=== PATIENT | female | born 1955 | race Caucasian/White ===

== ENCOUNTER 2020-07-26 11:24 | Outpatient (CLI) | payer MEDICARE, OTHER, SELFPAY ==
--- NOTE | ~2020-07-26 | US_ITS ---
EXAMINATION: US venous doppler LE RT DATE: 07/26/2020 12:05 INDICATION: Right lower limb edema. TECHNIQUE: Grayscale ultrasound images without and with compression and Doppler ultrasound images of the right lower extremity veins were obtained. COMPARISON: Ultrasound 05/17/2009 FINDINGS: The visualized portions of right common femoral vein, profunda (deep) femoral vein, femoral vein, pop liteal vein, peroneal veins, and posterior tibial veins. IMPRESSION: 1. No deep venous thrombosis. Reviewed, dictated and finalized at location B.
== END 2020-07-26 11:25 | disposition home or self-care (01) ==
LOC: ANHIMG 11:27
PROVIDERS: PCP Internal Medicine; Visit Provider Internal Medicine
DX: M79.89 Other specified soft tissue disorders (principal)
CPT/HCPCS: 93971

== ENCOUNTER 2020-08-04 18:02 | Emergency (ER) | payer MEDICARE, OTHER, SELFPAY ==
--- NOTE | ~2020-08-04 | XR_ITS ---
EXAMINATION: XR femur RT min 2V, XR tibia fibula RT 2V, XR foot RT min 3V DATE: 08/04/2020 20:07 INDICATION: Worsening right hip, leg and foot pain. TECHNIQUE: 1. Overlapping proximal and distal, AP and lateral views of the right femur were obtained. 2. AP and lateral views of the right tibia and fibula were obtained. 3. Dorsal plantar, lateral and 2 oblique views of the right foot were obtained. COMPARISON: None FINDINGS: Alignment of the right lower limb from the hip through the foot is normal. No fracture. Joint spaces are normal. No cortical erosions or periosteal reaction. No right knee knee joint effusion. Small Ach illes and plantar calcaneal spurs. Soft tissues are unremarkable. IMPRESSION: Small Achilles and plantar calcaneal spurs. Otherwise unremarkable radiographs of the rig ht femur, lower leg and foot.. Reviewed, dictated and finalized at location A. IMPRESSION: Small Achilles and plantar calcaneal spurs. Otherwise unremarkable radiographs of the right femur, lower leg and foot.. IMPRESSION: Small Achilles and plantar calcaneal spurs. Otherwise unremarkable radiographs of the right femur, lower leg and foot..
[2020-08-04 18:06] VITALS: BP 127/90; PULSE 98; RESP 20; TEMP 36.3; O2SAT 98
[2020-08-04] MEDS: HYDROcodone/acetaminophen (*CRX) 5-325 MG TABLET 2 TAB PO (20:11)
--- NOTE | 2020-08-04 20:13 | ED.GENADULT ---
HPI - General Adult General Chief complaint: Extremity Injury, Lower Stated complaint: pain to right extremity Time Seen by Provider: 08/04/20 18:41 Source: patient and family Mode of arrival: ambulatory Limitations: no limitations History of Present Illness HPI narrative: Patient presents for evaluation of pain in the right lower extremity. She is an extremely poor historian as is her who is here at the bedside. Sounds like she has some chronic bilateral hip pain for which she takes hydrocodone. However in the last two weeks she has experienced pain in right lower extremity extending from foot to right hip. She states pain is constant but worse with weight bearing. She cannot identify precipitating injury or event. She states that current pain is 10/10 in severity, without descriptive quality. She contacted her PCP and had a venous duplex performed which was negative for DVT. It sounds like she had an MRI of lumbar spine at an outside imaging facility in [place] and results are pending. She states that it hurts to move her right ankle. It sounds like she is being treated for onychomycosis. She states she has been applying antibiotic ointment to an infected toenail . No fever, chills, nausea, vomiting. She states that it feels like her right foot is frozen . When asked for clarification she states that her right foot feels numb. No history of smoking. Related Data Home Medications Medication Instructions Recorded Confirmed baclofen mg 08/04/20 08/04/20 conjugated estrogens [Premarin] 08/04/20 esomeprazole magnesium [Nexium] mg 08/04/20 lisinopril-hydrochlorothiazide tablet 08/04/20 pravastatin 08/04/20 Allergies Allergy/AdvReac Type Severity Reaction Status Date / Time No Known Allergies Allergy Verified 08/04/20 18:38 Review of Systems Review of Systems: Narrative: CONSTITUTIONAL: Denies fever, chills, or sweats. EYES: Denies visual changes, redness, or discharge. ENT: Denies rhinorrhea, congestion, sore throat, or otalgia. CARDIOVASCULAR: Denies chest pain, palpitations, or edema. RESPIRATORY: Denies cough or dyspnea. GASTROINTESTINAL: Denies abdominal pain, nausea, vomiting, or diarrhea. GENITOURINARY: Denies dysuria or hematuria. SKIN: Denies rash or itching. MUSCULOSKELETAL: Reports right lower extremity pain NEUROLOGIC:Reports numbness in right foot. Denies headache, dizziness, or weakness. PSYCHIATRIC: Denies anxiety or depression. [facility] Past Medical History Medical History (Updated 08/04/20 @ 20:57 by VIRGILIO Douglas, ) Hyperlipidemia Hypertension Surgical History Surgical History No pertinent past surgical history Family History Family History Mother No pertinent past medical history Social History Social History Smoking status: Never smoker Alcohol intake: never Substance use: never Living arrangements: with family Gender identity (if verbalized by the patient): Female Sexual Orientation (if Verbalized by the Patient): Straight or Heterosexual Spiritual care concerns: No Exam Narrative: Exam Narrative: GENERAL: Well-appearing, well-nourished, and in no acute distress. HEAD: Normocephalic, atraumatic. EYES: PERRLA and EOMI. ENT: Nares clear, no rhinorrhea or epistaxis. Mucous membranes moist. Oropharynx without tonsillar hypertrophy exudate or other lesions. Bilateral TMs pearly juan nonbulging NECK: Supple. No adenopathy or masses. No carotid bruits or JVD CHEST: Clear to auscultation. No respiratory distress. No wheezes rales or rhonchi HEART: Regular rate and rhythm. No murmur heard. 2+ bilateral pedal pulses ABDOMEN: Soft, nontender, nondistended, normal active bowel sounds. EXTREMITIES: Tenderness throughout right foot, right ankle, right tib-fib, right fem
[2020-08-04 20:19] LABS: Basophils Percent Auto 0.4 % (0.2-1.2); Eosinophils Percent Auto 0.3 % (0-4.4); Hemoglobin 14.6 g/dL (12.0-15.0); Immature Granulocyte Absolute 0.03 K/mm3 (0.00-0.031); Immature Granulocyte Percent A 0.3 % (0-0.5); Lymphocytes Absolute Auto 1.97 K/mm3 (0.9-3.2); Lymphocytes Percent Auto 17.3 % (18.3-44.2); Mean Corpuscular HGB Conc 32.4 g/dl (32-36); Mean Corpuscular Volume 92.4 fl (80-100); Mean Platelet Volume 9.7 fl (7.4-10.4); Monocytes Absolute Auto 0.8 K/mm3 (0.1-0.6); Monocytes Percent Auto 7.3 % (2.6-8.5); Neutrophils Absolute Auto 8.5 K/mm3 (1.3-6.7); Neutrophils Percent Auto 74.4 % (45.5-73.1); Platelet Count Result 296 k/mm3 (150-375); Red Blood Count 4.87 M/mm3 (4.2-5.4); White Blood Count 11.4 K/mm3 (4.5-10.0)
[2020-08-04 20:28] LABS: Alanine Aminotransferase 31 U/L (4-35); Albumin Level 4.2 g/dL (3.5-5.1); Alkaline Phosphatase 99 U/L (38-126); Anion Gap 6 mmol/L (8-16); Aspartate Amino Transferase 36 U/L (14-36); Blood Urea Nitrogen 28 mg/dL (7-17); CRP 1.3 mg/dL (<1.0); Calcium 9.5 mg/dL (8.4-10.2); Carbon Dioxide 30 mmol/L (22-30); Chloride 103 mmol/L (98-107); Estimated CRCL calculation 64 ml/min; Estimated Glomerular Filt Rate > 60; Glucose 111 mg/dL (65-105); Potassium 4.4 mmol/L (3.4-5.0); Sodium 139 mmol/L (137-145)
[2020-08-04 20:55] LABS: Erythrocyte Sedimentation Rate 24 mm/hr (0-20)
[2020-08-04 21:38] VITALS: BP 122/81; PULSE 77; RESP 18; O2SAT 96
== END 2020-08-04 21:41 | disposition home or self-care (01) ==
PROVIDERS: Emergency Provider Nurse Practitioner; PCP Internal Medicine
DX: M79.604 Pain in right leg (principal); M77.31 Calcaneal spur, right foot; B35.1 Tinea unguium
CPT/HCPCS: 36415; 73552; 73590; 73630; 80053; 85025; 85652; 86140; 99283; A9270

== ENCOUNTER 2022-05-28 10:04 | Outpatient (CLI) | payer MEDICARE, OTHER, SELFPAY ==
--- NOTE | ~2022-05-28 | MM_ITS ---
EXAMINATION: MM screening fiordaliza BI w michelle HISTORY: Screening mammogram TECHNIQUE: Craniocaudal and mediolateral oblique 3-D tomosynthesis images were obtained and synthetic 2-D images were generated. Bilateral rotated lateral CC views. CAD analysis was submitted and interp reted. COMPARISON: 08/14/2016 diagnostic right mammogram 08/13/2016 bilateral screening mammogram BREAST PARENCHYMAL COMPOSITION: The breasts are heterogeneously dense, which may obscure small masses . FINDINGS: There is a biopsy marker in the posterior upper mid right breast; history of prior benign r ight breast stereotactic biopsy. Stable mild fibroglandular asymmetry since 08/13/2016. There is no evidence of suspicious mass, calcif ication, or architectural distortion to suggest malignancy in either breast. There has been no suspic ious interval change. IMPRESSION: 1. No mammographic evidence of malignancy. 2. Recommend routine screening mammography in one year. BI-RADS Category 2: Benign finding(s). Reviewed, dictated and finalized at location A. [employer]
== END 2022-05-28 10:05 | disposition home or self-care (01) ==
PROVIDERS: PCP Internal Medicine; Visit Provider Internal Medicine
DX: Z12.31 Encounter for screening mammogram for malignant neoplasm of breast (principal)
CPT/HCPCS: 77063; 77067

== ENCOUNTER 2023-01-01 10:51 | Outpatient (CLI) | payer MEDICARE, OTHER, SELFPAY ==
--- NOTE | 2023-01-01 11:03 | ECG_ITS ---
Measurements Intervals [place]gap Rate: 72 P: 51 CA: 149 QRS: 17 QRSD: 86 T: 48 QT: 373 QTc: 411 Interpretive Statements SINUS RHYTHM DELAYED PRECORDIAL R/S TRANSITION MINIMAL Q WAVES- INFERIOR LEADS BASELINE ARTIFACT- II, III, AVR, AVF BORDERLINE ECG NO PREVIOUS ECG AVAILABLE FOR COMPARISON Electronically Signed On 01-01-2023 11:30:14 CDT by Don Pollock D.O.
[2023-01-01 11:31] LABS: Alanine Aminotransferase 12 U/L (6-35); Albumin Level 4.5 g/dL (3.5-5.1); Alkaline Phosphatase 85 U/L (38-126); Amylase 70 U/L (30-110); Aspartate Amino Transferase 19 U/L (14-36); Bilirubin,Total 1.1 mg/dL (0.2-1.3); Lipase 44 U/L (23-300)
[2023-01-01 11:33] LABS: Anion Gap 4 mmol/L (8-16); Blood Urea Nitrogen 18 mg/dL (7-17); Calcium 9.4 mg/dL (8.4-10.2); Carbon Dioxide 34 mmol/L (22-30); Chloride 96 mmol/L (98-107); Estimated Glomerular Filt Rate > 60; Glucose 105 mg/dL (65-110); Potassium 4.9 mmol/L (3.4-5.0); Sodium 134 mmol/L (137-145)
== END 2023-01-01 10:52 | disposition home or self-care (01) ==
LOC: ANHSURGERY 10:55
PROVIDERS: Anesthesiology; PCP Internal Medicine; Visit Provider Surgery
DX: Z01.818 Encounter for other preprocedural examination (principal); I10 Essential (primary) hypertension; K80.10 Calculus of gallbladder with chronic cholecystitis without obstruction; R93.1 Abnormal findings on diagnostic imaging of heart and coronary circulation
CPT/HCPCS: 36415; 80048; 80076; 82150; 83690; 86850; 86900; 86901; 93005

== ENCOUNTER 2023-01-04 17:58 | Observation (INO) | payer MEDICARE, OTHER, SELFPAY ==
--- NOTE | 2022-12-31 09:44 | PC.NURSE ---
Report to the Outpatient Waiting Room, entrance under the green pavilion located off [facility], at time _1030 on date _01/04/23 . Planned Procedure Time: __1230 . Time changes happen often and if your time is changed the preop area will call you the afternoon before. - You and your visitor will be asked to self-screen and do not enter if you have any COVID symptoms. - A mask is optional within the hospital at this time. Patients may have clear liquids (water, carbonated beverages, clear teas, apple juice) until 3 hours prior to surgery with a maximum of 20 ounces. - No food from midnight until time of surgery - Infants may have breast milk until 4 hours before surgery, infant formula 6 hours prior to surgery. - Children will be allowed to drink immediately following surgery. If applicable, please bring a bottle or sippy cup to assist with drinking. Juice, water, soda, and popsicles are readily available. For infants on formula, please bring formula the day of surgery. Pacifiers are allowed. Take the following medications with a SIP of water the morning of surgery: ____LORAZEPAM_IF NEEDED, HYDROCODONE IF NEEDE DO NOT STOP ANY OF YOUR OTHER PRESCRIPTION MEDICATIONS PRIOR TO SURGERY ?EXCEPT THE FOLLOWING Medications to discontinue per physician ___ALL VITAMINS AND SUPPLEMENTS 3 DAYS PRE OP.LAST DOSE 12/31/22 HIBICLENS SHOWER MORNING OF SURGERY Please no make-up, nail [place], hairspray, perfume, deodorant, or body powder the day of surgery. No jewelry (including any body piercings) or valuables the day of surgery, leave them at home. Please take a shower or bath the night before, or the morning of, surgery with an antibacterial soap. Wear comfortable, loose fitting clothing. Children are encouraged to wear pajamas. - Jewelry must be removed prior to entering the operating room. Rings and piercings that are not removed may be cut off. - The hospital will not accept responsibility for valuables. - Please leave all valuables, including medications, at home the day of surgery. If you are going home after surgery, a licensed medical delivery driver must drive you home. - NO public transportation without another adult if you receive anesthesia. - We recommend that an adult stay with you for 24 hours following discharge. - We also recommend that you do not drive, make important decision, drink alcoholic beverages, or take any drugs that were not prescribed by your health care provider for at least 24 hours after your discharge time. For Pediatric surgeries, we recommend two adults accompany the child home. Follow any additional instructions given to you from your surgeon. If you or anyone in your household have experienced Covid symptoms in the past week, please notify your surgeon or the nurse liaison at the phone number below for possible testing. Telephone instructions given to __PATIENT and asked if any additional questions and then verbalized understanding. Patient advised to call surgeon office or pre surgery nurse liaison [phone] if any additional questions.
[2022-12-31 09:54] VITALS: BMI 23.9
[2023-01-04] VITALS (16 sets, daily range): BP systolic 102–131; BP diastolic 40–83; PULSE 58–97; RESP 10–28; TEMP 36.2–36.6; O2SAT 90–100; BMI 24.7
[2023-01-04] MEDS: KETOROLAC 15 MG/ML VIAL (*BKC) IV PUSH (11:35)
[2023-01-04] MEDS: ACETAMINOPHEN 500 MG TABLET 1000 MG PO (11:35)
[2023-01-04] MEDS: LACTATED RINGERS 1,000 ML 30 ML IV CONT ×3 (11:35→16:22)
--- NOTE | 2023-01-04 12:28 | WPDANESEPPF ---
Anes - Initial Pre Proc Eval Procedure: Operation Date: 01/04/23 12:30 Proposed Procedures p Laparoscopic Cholecystectomy - Laquita Alston MD Date/Time: 01/04/23 12:28 Surgeon: Laquita Alston MD Pre Op Diagnosis: chronic calculous cholecystitis Patient Data Age: 67 Gender: F Height: 1.6 m Weight: 58.8 kg Last Vital Signs Temp 36.6 C 01/04/23 11:39 Pulse 97 01/04/23 11:39 Resp 14 01/04/23 11:39 BP 108/64 01/04/23 11:39 Pulse Ox 100 01/04/23 11:39 O2 Del Method Room Air 01/04/23 11:39 Allergies Allergy/AdvReac Type Severity Reaction Status Date / Time No Known Allergies Allergy Verified 01/04/23 11:48 Home Medications Medication Instructions Recorded Confirmed Type conjugated estrogens 0.625 mg/gram 0.625 mg vaginal 3XW 08/04/20 12/31/22 History vaginal cream (Premarin) esomeprazole magnesium 40 mg 40 mg PO DAILY 08/04/20 12/31/22 History capsule,delayed release (Nexium) lisinopril 20 1 tablet PO DAILY 08/04/20 01/04/23 History mg-hydrochlorothiazide 12.5 mg tablet pravastatin 20 mg tablet 20 mg PO DAILY 08/04/20 01/04/23 History cyanocobalamin (vitamin B-12) 1,000 mcg PO DAILY 12/31/22 12/31/22 History 1,000 mcg tablet hydrocodone 7.5 mg-acetaminophen 1 tablet PO TID PRN Pain 12/31/22 01/04/23 History 325 mg tablet lorazepam 0.5 mg tablet 0.5 mg PO BID PRN Anxiety 12/31/22 01/04/23 History magnesium 200 mg tablet 400 mg PO DAILY 12/31/22 12/31/22 History psyllium husk 0.4 gram capsule 0.4 g PO DAILY 12/31/22 12/31/22 History (Metamucil) Patient hx anesthesia problems: none Family hx anesthesia problems: none Results Review: All pre-operative results and documents have been reviewed as part of the pre-operative evaluation. [facility] Past Medical History Medical History Anxiety Arthritis Hernandez esophagus GERD (gastroesophageal reflux disease) Hyperlipidemia Hypertension Mild acid reflux Uterine cancer age 33 Surgical History Surgical History (Updated 01/04/23 @ 12:28 by Rayray Ellison MD) History of bladder suspension procedure (04/05/97) S/P breast biopsy, right (09/09/16) right stereotactic breast needle core bx - fibroadenoma like change w/microcalcification, duct ectasia S/P total abdominal hysterectomy uterine cancer age 33 Family History Family History Mother No pertinent past medical history Social History Social History Smoking status: Never smoker Alcohol intake: never Substance use: never Living arrangements: with family Additional living arrangements comments: Occupation/Education: retired Gender identity (if verbalized by the patient): Female Sexual Orientation (if Verbalized by the Patient): Straight or Heterosexual Spiritual care concerns: No Anes - Eval Final PreProcedure Day of Procedure 01/04/23 12:28 Patient weight: normal Heart: regular rate and rhythm Lungs: clear to auscultation Airway: Mallampati scale class II Neurological: alert and oriented Last oral intake: >/= 8 hours ASA classification: III Emergent: no Anesthetic plan: proceed Anesthesia type and monitoring: general ETT and standard monitoring Results Review: All pre-operative results and documents have been reviewed as part of the pre-operative evaluation. Informed Consent: The patient's anesthetic plan and its attendant risks and benefits were discussed with the patient/family/POA. Questions were solicited and answers provided to the satisfaction of the patient/family/POA.
--- NOTE | 2023-01-04 13:22 | SUR.PREOP ---
pt and family have been updated several times about a delay in OR. pt is very understanding.
--- NOTE | 2023-01-04 13:44 | WPDHPUPDATE1 ---
History and Physical Update Update Date/Time: 01/04/23 13:44 History and Physical has been reviewed, including an updated exam of the patient. There are NO changes in the patient's condition. Risks, benefits, and alternatives have been discussed and questions answered. Patient agrees to proceed with procedure.
[2023-01-04] MEDS: ceFAZolin 2 GM/D5W 50 ML 2 GM/50 ML BAG IVPB (14:20)
[2023-01-04] MEDS: BUPIVACAINE/EPINEPHRINE 0.5% 50 ML VIAL 30 ML INFILTRATE (14:39)
--- NOTE | 2023-01-04 15:08 | W.PM.PROC2 ---
Procedure Note - Detailed Date of Procedure 01/04/23 Pre-op Diagnosis chronic calculous cholecystitis Post-op Diagnosis Same Procedure Performed Laparoscopic cholecystectomy Surgeon Laquita Alston MD Anesthesia General Indications 67-year-old female presented to the office complaining of postprandial right upper quadrant abdominal pain associated with nausea and vomiting. Workup including imaging significant for cholecystitis, cholelithiasis. Findings Cholecystitis with cholelithiasis Description of Procedure The patient was taken to the operating room placed in the supine position. After adequate induction of general anesthesia, the patient was prepped and draped in normal sterile fashion. A time-out was then performed to verify the patient's identity as well as the procedure being performed. I then made a 5 mm incision in the infraumbilical region. Through this, a Veress needle was placed into the peritoneal cavity and CO2 gas was then insufflated. After adequate pneumoperitoneum was achieved, the Veress needle was removed and a 5 mm optiview trocar was placed through this incision under direct visualization. I then placed the laparoscope through this trocar site and under direct visualization placed a further 12 mm subxiphoid port as well as 2 additional 5 mm ports in the right upper abdomen. The gallbladder was then identified and was noted to be moderately inflamed, distended, and full of gallstones. I was able to place a grasper at the dome of the gallbladder and this was retracted anterior and cephalad up over the liver. A 2nd retractor was then placed at the infundibulum and retracted laterally, this allowed visualization of the triangle of Calot. I then was able to visualize the cystic duct in its entirety from its proximal insertion into the gallbladder, to its distal junction with the common hepatic/common bile duct junction. At this point, I carefully skeletonized the proximal cystic duct with the [place] dissector. I then clipped and transected the proximal cystic duct. Next I visualized the cystic artery. Again the artery was skeletonized, clipped, and transected. I then used the Bovie cautery to take down the peritoneal attachments of the gallbladder off the liver bed. This was somewhat difficult given the amount of inflammation in the posterior space. Once the gallbladder specimen was completely detached, an endo-pouch was placed through the 12 mm port site. I then placed the gallbladder specimen into the Endo pouch and removed the endo-pouch from the 12 mm port site. The specimen will now be sent to pathology for further review. I then copiously irrigated the right upper quadrant. Some mild oozing was noted in the liver bed and this was controlled with the bovie cautery. Hemostasis was noted in the liver bed, the clips were noted to be in good position on both the cystic duct stump and the cystic artery stump. No other pathology was noted in the right upper quadrant. I then moved the laparoscope to the subxiphoid port. No iatrogenic injury or other pathology was noted in the lower abdomen. I then closed the 12 mm trocar site under direct visualization using the Ventura cone and 0 Vicryl suture. At this point, the abdomen was desufflated and all ports removed. All port sites were then closed with 4.O Monocryl subcuticular sutures. Dermabond was placed on each incision. The patient tolerated the procedure well, was extubated in the operating room postoperative and will be transferred to the recovery room in stable condition Estimated Blood Loss 20 Drains No Packing No Pathology Yes Complications No immediate complications Condition Stable Disposition PACU [facility] Billing Surgery - Charge Forward: Surgery Billing
[2023-01-04] MEDS: fentaNYL CITRATE INJ (*CRX) 100 MCG/2 ML VIAL 25 MCG IV PUSH ×8 (15:29→17:02)
[2023-01-04] MEDS: HYDROmorphone HCL INJ (*CRX) 1 MG/ML SYR 0.5 MG IV PUSH ×4 (16:09→16:45)
[2023-01-04] MEDS: ONDANSETRON INJ 4 MG/2 ML VIAL IV PUSH (17:17)
[2023-01-04] MEDS: oxyCODONE HCL (*CRX) 5 MG TAB IR PO (17:30)
--- NOTE | 2023-01-04 19:10 | ADMGEN ---
This patient, Yesenia Patton, was admitted to Medical Room 261-01. Patient/family oriented to hospital policies and general routines including ID bracelet, bed and alarms, visiting hours, pain management, procedures, bathroom and other care routines, personal items, smoking policy, room service/diet, and visiting hours. Information on how to activate the Rapid Response Team has been discussed. Patient/Family are encouraged to report perceived risks to care and to ask questions if they do not understand what they are told or what they should do.
[2023-01-04] MEDS: HYDROcodone/acetaminophen (*CRX) 7.5-325 MG TABLET 1 TAB PO (20:11)
[2023-01-05 00:01] VITALS: BP 99/53; PULSE 77; RESP 17; TEMP 36.5; O2SAT 98
[2023-01-05 03:56] VITALS: BP 101/43; PULSE 72; RESP 17; TEMP 36.3; O2SAT 94
[2023-01-05] MEDS: HYDROcodone/acetaminophen (*CRX) 7.5-325 MG TABLET 1 TAB PO (04:00)
--- NOTE | 2023-01-05 07:56 | WPDANESPN ---
Anes - Prog Note Post-Op Date/Time: 01/05/23 07:56 Cardiovascular status: normal Respiratory status: normal Airway patency: baseline Mental status: baseline Post-Op hydration status: normal Vital Signs: Last Vital Signs Temp 36.3 C L 01/05/23 03:56 Pulse 72 01/05/23 03:56 Resp 17 01/05/23 03:56 BP 101/43 L 01/05/23 03:56 Pulse Ox 94 01/05/23 03:56 O2 Del Method Room Air 01/04/23 20:50 O2 Flow Rate 8 01/04/23 16:32 Pain Score (VAS): 0 I/O: Intake & Output 01/04/23 01/04/23 01/05/23 15:59 23:59 07:59 Intake Total 0 1400 360 Output Total 300 Balance 0 1400 60 Post-procedural complaints: none Patient Feedback: Patient satisfied with anesthetic care.
[2023-01-05 08:10] VITALS: BP 104/44; PULSE 65; RESP 18; O2SAT 95
[2023-01-05] MEDS: CYANOCOBALAMIN 1,000 MCG TABLET 1000 MCG PO (08:15)
[2023-01-05] MEDS: MAGNESIUM OXIDE 400 MG TABLET PO (08:15)
[2023-01-05] MEDS: PANTOPRAZOLE 40 MG TABLET PO (08:15)
[2023-01-05] MEDS: PRAVASTATIN SODIUM 20 MG TABLET PO (08:15)
[2023-01-05 10:55] LABS: Alanine Aminotransferase 43 U/L (6-35); Albumin Level 3.2 g/dL (3.5-5.1); Alkaline Phosphatase 67 U/L (38-126); Anion Gap 4 mmol/L (8-16); Aspartate Amino Transferase 48 U/L (14-36); Bilirubin,Total 0.7 mg/dL (0.2-1.3); Blood Urea Nitrogen 18 mg/dL (7-17); Calcium 8.3 mg/dL (8.4-10.2); Carbon Dioxide 29 mmol/L (22-30); Chloride 99 mmol/L (98-107); Estimated CRCL calculation 48 ml/min; Estimated Glomerular Filt Rate > 60; Glucose 131 mg/dL (65-110); Hematocrit 33.1 % (37.0-47.0); Hemoglobin 10.8 g/dL (12.0-15.0); Mean Corpuscular HGB Conc 32.6 g/dl (32-36); Mean Corpuscular Hemoglobin 30.3 pg (26-34); Mean Platelet Volume 10.1 fl (7.4-10.4); Platelet Count Result 186 k/mm3 (150-375); Potassium 4.1 mmol/L (3.4-5.0); Red Blood Count 3.56 M/mm3 (4.2-5.4); Red Cell Distribution Width 12.4 % (11.5-14.5); Sodium 132 mmol/L (137-145); White Blood Count 16.8 K/mm3 (4.5-10.0)
[2023-01-05 11:22] VITALS: BMI 24.7
[2023-01-05] MEDS: KETOROLAC 15 MG/ML VIAL (*BKC) IV PUSH (11:53)
[2023-01-05] MEDS: PSYLLIUM POWDER PACKET 1 PACKET PO (11:56)
[2023-01-05 13:44] VITALS: BP 104/46; PULSE 60; RESP 16; TEMP 37; O2SAT 99
[2023-01-05 15:30] VITALS: BP 122/66
--- NOTE | 2023-01-05 15:52 | PM.DS ---
DS: Admitting Diagnosis Discharge Date 01/05/2023 Admitting Diagnosis Chronic calculous cholecystitis DS: Discharge Diagnosis Discharge Diagnosis (1) CCC (chronic calculous cholecystitis): Code(s): K80.10 - Calculus of gallbladder with chronic cholecystitis without obstruction Status: Acute DS: Summary Hospital Course Reason for hospitalization: This is a 67-year-old female who presented to the office with postprandial right upper quadrant abdominal pain associated with nausea and vomiting. Workup including imaging was significant for cholelithiasis with cholecystitis. Following discussions with the surgeon, decision was made to proceed with scheduling of a laparoscopic cholecystectomy. She presented for surgery on 01/04/2023. Hospital Course: The patient had a laparoscopic cholecystectomy by Dr. Bucio on 01/04/2023. Surgery appears to be straightforward. She had some pain after surgery and was kept overnight for monitoring and management of her pain. Her diet was slowly advanced to a low-fat diet. She had a slightly low normal blood pressure this morning and her lisinopril and hydrochlorothiazide was held. She had labs drawn, which were unremarkable. She was monitored throughout the day. She was given IV Toradol for her incisional pain. She was tolerating a diet and tolerating activity this afternoon. Pain was better controlled. Her blood pressure was stable at 120 2/66 this afternoon. She was stable for discharge this evening. Plan to follow-up in 2 weeks. Status at Discharge Functional status at discharge: independent ambulation Overall status at discharge: patient is progressing back to baseline Time Spent with Patient Time attestation: Total time spent providing and/or coordinating discharge services: Exam Const: General: comfortable, no acute distress and awake Orientation/consciousness: patient oriented x3 Resp: Effort & Inspection: normal respiratory effort Auscultation: clear to auscultation bilaterally Cardio: Rate: regular rate Rhythm: regular rhythm GI: Inspection: non-distended and incision (incisions dry and intact) GI Palp: Yes Soft to palpation and Yes Tenderness to palpation present (GI) (incisional) Auscultation: normal bowel sounds Neuro: General: moves all extremities and no focal motor deficits Extrem: General: no calf tenderness and no edema Psych: Mental Status: mental status grossly normal Insight: Good insight present (Psych) DS: Data Data Completed and Pending Pending studies at discharge: Pending at discharge 01/04/23 14:43 Surgical [PTH] Routine Labs on day of discharge: Labs from last 24 hours 01/05/23 10:39 WBC 16.8 H RBC 3.56 L Hgb 10.8 L D Hct 33.1 L MCV 93.0 MCH 30.3 MCHC 32.6 RDW 12.4 Plt Count 186 MPV 10.1 Sodium 132 L Potassium 4.1 Chloride 99 Carbon Dioxide 29 Anion Gap 4 L BUN 18 H Creatinine 0.80 Estim Creat Clear Calc 48 Estimated GFR > 60 Glucose 131 H Calcium 8.3 L Total Bilirubin 0.7 AST 48 H ALT 43 H Alkaline Phosphatase 67 Total Protein 6.0 L Albumin 3.2 L Procedures/Treatments: Procedures Operation Date: 01/04/23 12:30 Actual Procedure Side Surgeon p Laparoscopic Cholecystectomy Laquita Alston MD Discharge Plan Discharge Attending physician on discharge: Laquita Alston Discharging Clinician: Maria Guadalupe Feliciano Anticipated Discharge Date/Time: 01/05/23 15:59 Patient Disposition: Home, Self-Care Activity: may shower Diet: low fat Wound Care Instructions: incision open to air Discharge Instructions: DISCHARGE INSTRUCTION SHEET FOR HERNIA, GALLBLADDER AND APPENDIX SURGERIES DR. ALSTON 1. May shower in 24 hours, no soaking in bath x 2weeks. 2. Call office for: Wound increasingly painful or bleeding Vomiting Fever of greater than 101 degrees 3. If no bowel movement for three days, take 1 oz. (30 ml) Milk of Magnesia or MiraLax 17g 1
== END 2023-01-05 17:10 | disposition home or self-care (01) ==
LOC: ANH2MED 19:04
PROVIDERS: Admitting Provider Surgery; PCP Internal Medicine; Visit Provider Surgery
PROC: 0FT44ZZ Resection of Gallbladder, Percutaneous Endoscopic Approach (ICD-10-PCS; CPT 47562; principal; 2023-01-04 12:30)
DX: K80.10 Calculus of gallbladder with chronic cholecystitis without obstruction (principal); F41.9 Anxiety disorder, unspecified; K21.9 Gastro-esophageal reflux disease without esophagitis; E78.5 Hyperlipidemia, unspecified; I10 Essential (primary) hypertension; M19.90 Unspecified osteoarthritis, unspecified site; Z79.891 Long term (current) use of opiate analgesic; Z79.899 Other long term (current) drug therapy
CPT/HCPCS: 47562; 36415; 80053; 85027; 88304; A9270; G0378; G0379; J0330; J0690; J1100; J1170; J1885; J2250; J2371; J2405; J2704; J3010; J7030; J7120

== ENCOUNTER 2023-05-03 23:22 | Emergency (ER) | payer MEDICARE, OTHER, SELFPAY ==
--- NOTE | ~2023-05-03 | CT_ITS ---
CT of the Abdomen and Pelvis: Indication: Abdominal pain Technique: 2.5 mm axial scans were obtained through the abdomen and pelvis following intravenous adm inistration of 100 cc of Omnipaque 350. Dose reduction technique was used on this scan by utilizing a utomated exposure control and iterative reconstruction technique. The dose-length product (DLP) was 2 95.19 mGy-cm. Findings: Scans through the lung bases are unremarkable. There is a 1.3 cm hypodense mass the very inferior tip of the right hepatic lobe, indeterminate (axia l image 61, coronal image 59). The spleen, pancreas, adrenals and kidneys are within normal limits. C holecystectomy clips are present. No evidence of aortic aneurysm. No lymphadenopathy. No bowel obstruction or bowel wall thickening. There is no evidence to suggest acute appendicitis. Pr ominent duodenal diverticulum noted. Images through the pelvis were performed. Urinary bladder unremarkable. Pessary device present. No ot her pelvic mass seen. No ascites. Impression: 1.3 cm indeterminate hypodense mass the very anterior tip of the right hepatic lobe, new since 05/06/19 15. Small metastatic lesion, small abscess, other mass lesions are all diagnostic considerations. 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 Tissue sampling could also be considered given rel atively easy percutaneous access. Reviewed, dictated and finalized at [facility]. [employer] Impression: 1.3 cm indeterminate hypodense mass the very anterior tip of the right hepatic lobe, new since 05/06/2014. Small metastatic lesion, small abscess, other mass le sions are all diagnostic considerations. Consider pre and postcontrast MR to fu rther evaluate. Tissue sampling could also be considered given relatively easy percutaneous access.
[2023-05-03 23:24] VITALS: BP 141/61; PULSE 72; RESP 22; TEMP 36.6; O2SAT 100
[2023-05-04 00:25] LABS: Basophils Percent Auto 0.4 % (0.2-1.2); Eosinophils Percent Auto 0.3 % (0-4.4); Hematocrit 42.4 % (37.0-47.0); Hemoglobin 13.2 g/dL (12.0-15.0); Immature Granulocyte Absolute 0.03 K/mm3 (0.00-0.031); Immature Granulocyte Percent A 0.3 % (0-0.5); Lymphocytes Absolute Auto 1.76 K/mm3 (0.9-3.2); Lymphocytes Percent Auto 19.6 % (18.3-44.2); Mean Corpuscular HGB Conc 31.1 g/dl (32-36); Mean Corpuscular Hemoglobin 28.9 pg (26-34); Monocytes Absolute Auto 0.6 K/mm3 (0.1-0.6); Neutrophils Absolute Auto 6.5 K/mm3 (1.3-6.7); Neutrophils Percent Auto 72.4 % (45.5-73.1); Platelet Count Result 248 k/mm3 (150-375); Red Blood Count 4.56 M/mm3 (4.2-5.4); Red Cell Distribution Width 13.3 % (11.5-14.5)
[2023-05-04 00:35] LABS: Appearance Urine Turbid (Clear); Bacteria Urine 3+ /hpf; Bilirubin Urine Negative (Negative); Blood Urine Negative (Negative); Color Urine Dark Yellow (Yellow); Glucose Urine UA Negative (Negative); Ketones Urine 1+ mg/dL (Negative); Leukocyte Esterase Ur 2+ LEU/UL (Negative); Nitrate Urine Negative (Negative); Non Pathogenic Casts 0-2; Protein Urine Trace mg/dL (Negative); RBC Urine >100 /hpf (0-2); Specific Grav Ur 1.027 (1.001-1.035); Squamous Epithelial Cell Urine Many /hpf (Few); pH Urine 7.5 (5.0-9.0)
[2023-05-04 00:36] LABS: Add Urine Microscopic? YES
[2023-05-04 00:37] LABS: Alanine Aminotransferase 16 U/L (6-35); Alkaline Phosphatase 108 U/L (38-126); Anion Gap 5 mmol/L (8-16); Aspartate Amino Transferase 26 U/L (14-36); Blood Urea Nitrogen 12 mg/dL (7-17); Calcium 9.2 mg/dL (8.4-10.2); Carbon Dioxide 30 mmol/L (22-30); Chloride 94 mmol/L (98-107); Estimated CRCL calculation 61 ml/min; Estimated Glomerular Filt Rate > 60; Glucose 116 mg/dL (65-110); Lipase 30 U/L (23-300); Potassium 3.9 mmol/L (3.4-5.0); Sodium 129 mmol/L (137-145)
[2023-05-04 01:05] VITALS: BP 153/62; PULSE 75; RESP 18; TEMP 36.8; O2SAT 100
[2023-05-04 01:39] VITALS: BP 152/73; PULSE 76; RESP 26; O2SAT 100
[2023-05-04] MEDS: ACETAMINOPHEN 500 MG TABLET 1000 MG PO (02:58)
[2023-05-04] MEDS: KETOROLAC 15 MG/ML VIAL (*BKC) IV PUSH (02:58)
[2023-05-04] MEDS: HYDROmorphone HCL INJ (*CRX) 1 MG/ML SYR 0.5 MG IV PUSH (02:58)
[2023-05-04 03:39] VITALS: BP 147/69; PULSE 69; RESP 19; O2SAT 100
[2023-05-04 05:25] VITALS: BP 111/65; PULSE 60; RESP 12; O2SAT 97
--- NOTE | 2023-05-04 06:01 | ED.GENADULT ---
HPI - General Adult General Chief complaint: Abdominal Pain Stated complaint: trouble breathing Time Seen by Provider: 05/04/23 01:59 History of Present Illness HPI narrative: this is a 68-year-old female presents with left lower quadrant abdominal pain. This has been going on for at least 6 months. It is a stabbing pain in left lower quadrant that comes and goes. She says that is 20/10 in intensity. Patient says this happens almost daily. No exacerbating alleviating factors. Patient denies fever chills chest pain difficulty breathing nausea vomiting diarrhea. She takes daily hydrocodone for chronic pain. She has not had a bowel movement several days. Related Data Home Medications Medication Instructions Recorded Confirmed esomeprazole magnesium 40 mg 40 mg PO DAILY 08/04/20 04/28/23 capsule,delayed release (Nexium) lisinopril 20 1 tablet PO DAILY 08/04/20 04/28/23 mg-hydrochlorothiazide 12.5 mg tablet pravastatin 20 mg tablet 20 mg PO DAILY 08/04/20 04/28/23 cyanocobalamin (vitamin B-12) 1,000 mcg PO DAILY 12/31/22 04/28/23 1,000 mcg tablet hydrocodone 7.5 mg-acetaminophen 1 tablet PO TID PRN Pain 12/31/22 04/28/23 325 mg tablet lorazepam 0.5 mg tablet 0.5 mg PO BID PRN Anxiety 12/31/22 04/28/23 magnesium 200 mg tablet 400 mg PO DAILY 12/31/22 04/28/23 psyllium husk 0.4 gram capsule 0.4 g PO DAILY 12/31/22 04/28/23 (Metamucil) conjugated estrogens 0.625 mg/gram 0.625 mg vaginal DIRECTED 04/28/23 04/28/23 vaginal cream (Premarin) Allergies Allergy/AdvReac Type Severity Reaction Status Date / Time No Known Allergies Allergy Verified 04/28/23 14:20 [facility] Past Medical History Medical History Anxiety Arthritis Hernandez esophagus GERD (gastroesophageal reflux disease) Hyperlipidemia Hypertension Mild acid reflux Uterine cancer age 33 Surgical History Surgical History History of bladder suspension procedure (04/05/97) S/P breast biopsy, right (09/09/16) right stereotactic breast needle core bx - fibroadenoma like change w/microcalcification, duct ectasia S/P total abdominal hysterectomy uterine cancer age 33 Family History Family History Mother No pertinent past medical history Father Emphysema lung Social History Social History Smoking status: Never smoker Alcohol intake: never Substance use: never Substance use type: does not use Lack of Transportation: No Lack of Food: Never True Current Housing: I Have Housing Concerned About Future Housing: No Difficulty Paying Gas/Electric Bills: No Difficulty Paying for Meds: No Currently Unemployed: No Education: High School Diploma/GED Difficulty w/ Childcare or Family Care: No Living arrangements: with family Additional living arrangements comments: Occupation/Education: retired Gender identity (if verbalized by the patient): Female Sexual Orientation (if Verbalized by the Patient): Straight or Heterosexual Spiritual care concerns: No Exam Narrative: APPEARANCE: No apparent distress. Head: atraumatic. EYES: EOMI, NOSE: Atraumatic NECK: Trachea midline RESPIRATORY: No increased rate of breathing CARDIOVASCULAR: RRR, ABDOMINAL: soft, no palpable masses, no guarding or rebound. Patient reports tenderness in the lower quadrant no elicitable grimace. MUSCULOSKELETAl: No obvious deformities NEURO: Alert. Moving 4/4 extremities SKIN:: Warm, dry. Normal color PSYCHIATRIC: Normal affect Course Vital Signs Vital signs: Vital Signs Temperature 97.9 F 05/03/23 23:24 Pulse Rate 72 05/03/23 23:24 Respiratory Rate 22 H 05/03/23 23:24 Blood Pressure 141/61 H 05/03/23 23:24 Pulse Oximetry 100 05/03/23 23:24 Oxygen Delivery Room Air 05/03/23 23:24
[2023-05-04 06:10] VITALS: BP 96/62; PULSE 65; RESP 12; O2SAT 99
== END 2023-05-04 06:35 | disposition home or self-care (01) ==
PROVIDERS: Emergency Provider Emergency Medicine; PCP Internal Medicine
DX: N39.0 Urinary tract infection, site not specified (principal); R10.32 Left lower quadrant pain; E78.5 Hyperlipidemia, unspecified; I10 Essential (primary) hypertension
CPT/HCPCS: 36415; 74177; 80053; 81001; 83690; 85025; 87077; 87086; 87147; 87181; 87186; 96374; 96375; 99284; A9270; J1170; J1885; Q9967

== ENCOUNTER 2023-05-07 00:34 | Day surgery (SDC) | payer MEDICARE, OTHER, SELFPAY ==
[2023-04-28 13:58] VITALS: BMI 23.4
--- NOTE | 2023-05-05 11:31 | SUR.PREOP ---
Patient called regarding upcoming procedure. Reviewed preop instructions, appointment times, and procedure prep.
--- NOTE | 2023-05-05 19:13 | PM.HPGS ---
History of Present Illness History of Present Illness Consent: Risks, benefits, and alternatives have been discussed and questions answered. Patient agrees to proceed with procedure. Chief complaint: abdominal pain,diarrhea Narrative: Yesenia Patton is a 68 year old female who is referred for colon cancer screening. She denies having diarrhea. She states that she recently took an antibiotic for a possible infection. Generally however her stools are difficult to move. Review of Systems Review of Systems: All systems reviewed & are unremarkable except as noted in HPI and below PMFSH Past Medical History Medical History Anxiety Arthritis Hernandez esophagus GERD (gastroesophageal reflux disease) Hyperlipidemia Hypertension Mild acid reflux Uterine cancer age 33 Surgical History Surgical History History of bladder suspension procedure (04/05/97) History of cholecystectomy 12/2022 S/P breast biopsy, right (09/09/16) right stereotactic breast needle core bx - fibroadenoma like change w/microcalcification, duct ectasia S/P total abdominal hysterectomy uterine cancer age 33 Family History Family History Mother No pertinent past medical history Father Emphysema lung Social History Social History Smoking status: Never smoker Alcohol intake: never Substance use: never Substance use type: does not use Lack of Transportation: No Lack of Food: Never True Current Housing: I Have Housing Concerned About Future Housing: No Difficulty Paying Gas/Electric Bills: No Difficulty Paying for Meds: No Currently Unemployed: No Education: High School Diploma/GED Difficulty w/ Childcare or Family Care: No Living arrangements: with family Additional living arrangements comments: Occupation/Education: retired Gender identity (if verbalized by the patient): Female Sexual Orientation (if Verbalized by the Patient): Straight or Heterosexual Spiritual care concerns: No Meds Home Medications and Allergies Home Medications Medication Instructions Recorded Confirmed Type esomeprazole magnesium 40 mg 40 mg PO DAILY 08/04/20 05/07/23 History capsule,delayed release (Nexium) lisinopril 20 1 tablet PO DAILY 08/04/20 05/07/23 History mg-hydrochlorothiazide 12.5 mg tablet pravastatin 20 mg tablet 20 mg PO DAILY 08/04/20 05/07/23 History cyanocobalamin (vitamin B-12) 1,000 mcg PO DAILY 12/31/22 05/07/23 History 1,000 mcg tablet hydrocodone 7.5 mg-acetaminophen 1 tablet PO TID PRN Pain 12/31/22 05/07/23 History 325 mg tablet lorazepam 0.5 mg tablet 0.5 mg PO BID PRN Anxiety 12/31/22 05/07/23 History magnesium 200 mg tablet 400 mg PO DAILY 12/31/22 05/07/23 History psyllium husk 0.4 gram capsule 0.4 g PO DAILY 12/31/22 05/07/23 History (Metamucil) conjugated estrogens 0.625 mg/gram 0.625 mg vaginal DIRECTED 04/28/23 05/07/23 History vaginal cream (Premarin) cephalexin 500 mg capsule 500 mg PO Q12H #10 caps 05/04/23 05/07/23 Rx docusate calcium 240 mg capsule 240 mg PO DAILY #30 caps 05/04/23 05/07/23 Rx estradiol 0.01% (0.1 mg/gram) 1 g vaginal 3XW 2 weeks #42.5 grams 05/06/23 05/07/23 Rx vaginal cream metronidazole 500 mg tablet 500 mg PO Q12H 7 days #14 tabs 05/06/23 05/07/23 Rx Allergies Allergy/AdvReac Type Severity Reaction Status Date / Time No Known Allergies Allergy Verified 05/07/23 07:39 Exam Const: General: alert Orientation/consciousness: patient oriented x3 Resp: Auscultation: clear to auscultation bilaterally Cardio: Rhythm: regular rhythm GI: GI Palp: Yes Soft to palpation and No Tenderness to palpation present (GI) Neuro: General: patient oriented x3 Assessment and Plan Assessment and plan (1) Colon cancer scr
[2023-05-07 07:44] VITALS: BP 102/53; PULSE 90; RESP 20; TEMP 36.1; O2SAT 100
[2023-05-07] MEDS: LACTATED RINGERS 1,000 ML 150 ML IV CONT (07:55)
--- NOTE | 2023-05-07 08:20 | WPDANESEPPF ---
Anes - Initial Pre Proc Eval Procedure: Operation Date: 05/07/23 08:30 Proposed Procedures p Colonoscopy - Jose Huerta MD Date/Time: 05/07/23 08:20 Surgeon: Jose Huerta MD Pre Op Diagnosis: abdominal pain,diarrhea Patient Data Age: 68 Gender: F Height: 1.6 m Weight: 56.7 kg Last Vital Signs Temp 97.0 F L 05/07/23 07:44 Pulse 90 05/07/23 07:44 Resp 20 05/07/23 07:44 BP 102/53 L 05/07/23 07:44 Pulse Ox 100 05/07/23 07:44 O2 Del Method Room Air 05/07/23 07:44 Allergies Allergy/AdvReac Type Severity Reaction Status Date / Time No Known Allergies Allergy Verified 05/07/23 07:39 Home Medications Medication Instructions Recorded Confirmed Type esomeprazole magnesium 40 mg 40 mg PO DAILY 08/04/20 05/07/23 History capsule,delayed release (Nexium) lisinopril 20 1 tablet PO DAILY 08/04/20 05/07/23 History mg-hydrochlorothiazide 12.5 mg tablet pravastatin 20 mg tablet 20 mg PO DAILY 08/04/20 05/07/23 History cyanocobalamin (vitamin B-12) 1,000 mcg PO DAILY 12/31/22 05/07/23 History 1,000 mcg tablet hydrocodone 7.5 mg-acetaminophen 1 tablet PO TID PRN Pain 12/31/22 05/07/23 History 325 mg tablet lorazepam 0.5 mg tablet 0.5 mg PO BID PRN Anxiety 12/31/22 05/07/23 History magnesium 200 mg tablet 400 mg PO DAILY 12/31/22 05/07/23 History psyllium husk 0.4 gram capsule 0.4 g PO DAILY 12/31/22 05/07/23 History (Metamucil) conjugated estrogens 0.625 mg/gram 0.625 mg vaginal DIRECTED 04/28/23 05/07/23 History vaginal cream (Premarin) cephalexin 500 mg capsule 500 mg PO Q12H #10 caps 05/04/23 05/07/23 Rx docusate calcium 240 mg capsule 240 mg PO DAILY #30 caps 05/04/23 05/07/23 Rx estradiol 0.01% (0.1 mg/gram) 1 g vaginal 3XW 2 weeks #42.5 grams 05/06/23 05/07/23 Rx vaginal cream metronidazole 500 mg tablet 500 mg PO Q12H 7 days #14 tabs 05/06/23 05/07/23 Rx Patient hx anesthesia problems: none Family hx anesthesia problems: none Results Review: All pre-operative results and documents have been reviewed as part of the pre-operative evaluation. [facility] Past Medical History Medical History Anxiety Arthritis Hernandez esophagus GERD (gastroesophageal reflux disease) Hyperlipidemia Hypertension Mild acid reflux Uterine cancer age 33 Surgical History Surgical History History of bladder suspension procedure (04/05/97) History of cholecystectomy 12/2022 S/P breast biopsy, right (09/09/16) right stereotactic breast needle core bx - fibroadenoma like change w/microcalcification, duct ectasia S/P total abdominal hysterectomy uterine cancer age 33 Family History Family History Mother No pertinent past medical history Father Emphysema lung Social History Social History Smoking status: Never smoker Alcohol intake: never Substance use: never Substance use type: does not use Lack of Transportation: No Lack of Food: Never True Current Housing: I Have Housing Concerned About Future Housing: No Difficulty Paying Gas/Electric Bills: No Difficulty Paying for Meds: No Currently Unemployed: No Education: High School Diploma/GED Difficulty w/ Childcare or Family Care: No Living arrangements: with family Additional living arrangements comments: Occupation/Education: retired Gender identity (if verbalized by the patient): Female Sexual Orientation (if Verbalized by the Patient): Straight or Heterosexual Spiritual care concerns: No Anes - Eval Final PreProcedure Day of Procedure 05/07/23 08:20 Patient weight: normal Heart: regular rate and rhythm Lungs: clear to auscultation Airway: Mallampati scale class II Neurological: alert and oriented Last oral intake: >/= 8 hours ASA classificatio
[2023-05-07 08:54] VITALS: BP 103/43; PULSE 69; RESP 20; O2SAT 100
[2023-05-07 09:04] VITALS: BP 105/49; PULSE 75; RESP 20; O2SAT 100
[2023-05-07 09:14] VITALS: BP 106/57; PULSE 68; RESP 20; O2SAT 100
== END 2023-05-07 09:20 | disposition home or self-care (01) ==
PROVIDERS: PCP Internal Medicine; Referring Provider Surgery; Visit Provider Internal Medicine Gastroenterology
PROC: 0DJD8ZZ Inspection of Lower Intestinal Tract, Via Natural or Artificial Opening Endoscopic (ICD-10-PCS; CPT 45378; principal; 2023-05-07 08:30)
DX: Z12.11 Encounter for screening for malignant neoplasm of colon (principal); K57.30 Diverticulosis of large intestine without perforation or abscess without bleeding; K21.9 Gastro-esophageal reflux disease without esophagitis; I10 Essential (primary) hypertension; E78.5 Hyperlipidemia, unspecified; F41.9 Anxiety disorder, unspecified; Z85.42 Personal history of malignant neoplasm of other parts of uterus
CPT/HCPCS: G0121; J2704; J7120

== ENCOUNTER 2025-01-03 13:49 | Outpatient (CLI) | payer MEDICARE, OTHER, SELFPAY ==
--- NOTE | ~2025-01-03 | MM_ITS ---
EXAMINATION: MM screening [facility] BI w michelle HISTORY: Screening TECHNIQUE: Craniocaudal and mediolateral oblique 3-D tomosynthesis images were obtained and synthetic 2-D images were generated. CAD analysis was submitted and interpreted. COMPARISON: Comparison to multiple prior studies sequentially, with oldest reviewed study dated 08/13/2016. BREAST PARENCHYMAL COMPOSITION: Not dense: There are scattered areas of fibroglandular density. FINDINGS: There is no evidence of suspicious mass, calcification, or architectural distortion to suggest malignancy in either breast. There has been no suspicious interval change. IMPRESSION: 1. No mammographic evidence of malignancy. 2. Recommend routine screening mammography in one year. BI-RADS Category 1: Negative Reviewed, dictated and finalized at location [facility].
--- OUTSIDE RECORDS SUMMARY | 2025-01-03 13:56 | XMS_ITS | Clinical Summary ---
Author Organization [facility] Address [address] [place] [id number] Care Team Providers Care Digital Media Director Name Role Phone Unavailable Primary Care Provider Unavailabl e Social History Tobacco Use Types Packs/Day Years Used Date Smoking Tobacco: Never Assessed Comments Unknown Sex and Gender Information Value Date Recorded Sex Assigned at Not on file Legal Sex Female 5:10 PM CDT Gender Identity Not on file Sexual Orientation Not on file Last Filed Vital Signs Vital Sign Reading Time Taken Comments Blood Pressure - - Pulse - - Temperature - - Respiratory Rate - - Oxygen Saturation - - Inhaled Oxygen Concentration - - Weight 65.8 kg (145 lb) 10/11/2014 9:11 AM CDT Height 160 cm (5' 3) 10/11/2014 9:11 AM CDT Body Mass Index 25.69 10/11/2014 9:11 AM CDT Plan of Treatment Health Maintenance Due Date Last Done Comments Colorectal Cancer Screening Colonoscopy (10 Years) 1953 Hepatitis C 1971 DTaP, Tdap and Td Vaccines ( 1 - Tdap) 1972 Mammogram Screening 1993 Pneumococcal Vaccine: 50+ Ye ars (1 of 1 - PCV) 2003 Zoster Vaccines (1 of 2) 2003 Dexa Scan (General) 2018 COVID-19 Vaccine ( - 2023-2 5 season) 2024 RSV Immunization or 60+ Years (1 - 1-dose 75+ series) 2028 Meningococcal B Vaccine Aged Out No l onger eligible based on patient's age to complete this topic Meningococcal Vaccine Aged Out No elmo ernesto eligible based on patient's age to complete this topic RSV Immunizations Under 20 Months Aged Out No longer eligible based on patient's age to complete this topic
--- OUTSIDE RECORDS SUMMARY | 2025-01-03 13:56 | XMS_ITS | Encounter Summary ---
Author Organization [facility] Address [address] [place] [id number] Care Team Providers Care Scheduling Manager Name Role Phone Unavailable Primary Care Provider Unavailabl e Encounter Details Date Type Department Care Team (Late st Contact Info) Description 09/10/2018 Abstract SFL CONVERSION [address] [place] [address] , Generic Conversion, Social History Tobacco Use Types Packs/Day Years Used Date Smoking Tobacco: Never Assessed Comments Unknown Sex and Gender Information Value Date Recorded Sex Assigned at Not on file Legal Sex Female 5:10 PM CDT Gender Identity Not on file Sexual Orientation Not on file documented as of this encounter Plan of Treatment Not on file documented as of this encounter Visit Diagnoses Not on filedocumented in this encounter
== END 2025-01-03 13:50 | disposition home or self-care (01) ==
LOC: ANHFOHIMG 13:51
PROVIDERS: PCP Internal Medicine; Visit Provider Internal Medicine
DX: Z12.31 Encounter for screening mammogram for malignant neoplasm of breast (principal)
CPT/HCPCS: 77063; 77067

== ENCOUNTER 2025-02-19 00:25 | Day surgery (SDC) | payer MEDICARE, OTHER, SELFPAY ==
[2025-02-05 14:04] VITALS: BMI 25.9
[2025-02-19 08:33] VITALS: BP 133/63; PULSE 71; RESP 18; TEMP 36.1; O2SAT 100; BMI 25.8
[2025-02-19] MEDS: LACTATED RINGERS 1,000 ML 150 ML IV CONT (08:43)
--- NOTE | 2025-02-19 08:52 | WPDANESEPPF ---
Anes - Initial Pre Proc Eval Procedure: Operation Date: 02/19/25 09:45 Proposed Procedures p Esophagogastroduodenoscopy EGD - Rod Hargrove MD Date/Time: 02/19/25 08:52 Surgeon: Rod Hargrove MD Pre Op Diagnosis: GERD Patient Data Age: 69 Gender: F Height: 1.57 m Weight: 64.1 kg Last Vital Signs Temp 36.1 C L 02/19/25 08:33 Pulse 71 02/19/25 08:33 Resp 18 02/19/25 08:33 BP 133/63 02/19/25 08:33 Pulse Ox 100 02/19/25 08:33 O2 Del Method Room Air 02/19/25 08:33 Allergies Allergy/AdvReac Type Severity Reaction Status Date / Time No Known Allergies Allergy Verified 02/19/25 08:32 Home Medications ?Medication ?Instructions ?Recorded ?Confirmed ?Type esomeprazole magnesium 40 mg 40 mg PO DAILY 08/04/20 02/19/25 History capsule,delayed release (Nexium) lisinopril 20 1 tablet PO DAILY 08/04/20 02/19/25 History mg-hydrochlorothiazide 12.5 mg tablet pravastatin 20 mg tablet 20 mg PO DAILY 08/04/20 02/19/25 History cyanocobalamin (vitamin B-12) 1,000 mcg PO DAILY 12/31/22 02/19/25 History 1,000 mcg tablet hydrocodone 7.5 mg-acetaminophen 1 tablet PO TID PRN Pain 12/31/22 02/19/25 History 325 mg tablet lorazepam 0.5 mg tablet 0.5 mg PO BID PRN Anxiety 12/31/22 02/19/25 History magnesium 200 mg tablet 400 mg PO DAILY 12/31/22 02/19/25 History psyllium husk 0.4 gram capsule 0.4 g PO DAILY 12/31/22 02/19/25 History (Metamucil) docusate calcium 240 mg capsule 240 mg PO DAILY #30 caps 05/04/23 02/19/25 Rx estradiol 0.01% (0.1 mg/gram) 1 g vaginal 3XW 2 weeks #42.5 grams 05/06/23 02/19/25 Rx vaginal cream conjugated estrogens 0.625 mg/gram 0.625 mg vaginal DIRECTED #30 07/19/23 02/19/25 Rx vaginal cream (Premarin) grams Patient hx anesthesia problems: none Family hx anesthesia problems: none Results Review: All pre-operative results and documents have been reviewed as part of the pre-operative evaluation. [facility] Past Medical History Medical History GERD (gastroesophageal reflux disease) Anxiety Arthritis Uterine cancer age 33 Mild acid reflux Hernandez esophagus Hyperlipidemia Hypertension Surgical History Surgical History History of cholecystectomy 12/2022 S/P breast biopsy, right (09/09/16) right stereotactic breast needle core bx - fibroadenoma like change w/microcalcification, duct ectasia S/P total abdominal hysterectomy uterine cancer age 33 History of bladder suspension procedure (04/05/97) Family History Family History Mother No pertinent past medical history Father Emphysema lung Social History Social History Smoking status: Never smoker Alcohol intake: never Substance use: never Substance use type: does not use Lack of Transportation: No Lack of Food: Never True Current Housing: I Have Housing Concerned About Future Housing: No Difficulty Paying Gas/Electric Bills: No Difficulty Paying for Meds: No Currently Unemployed: No Education: High School Diploma/GED Difficulty w/ Childcare or Family Care: No Living arrangements: with family Additional living arrangements comments: Occupation/Education: retired Gender identity (if verbalized by the patient): Female Sexual Orientation (if Verbalized by the Patient): Straight or Heterosexual Spiritual care concerns: No Anes - Eval Final PreProcedure Day of Procedure 02/19/25 08:52 Patient weight: overweight Heart: regular rate and rhythm Lungs: clear to auscultation Airway: Mallampati scale class II Neurological: alert and oriented Last oral intake: >/= 8 hours ASA classification: III Emergent: no Anesthetic plan: proceed Anesthesia type and monitoring: general GIVS and standard monitoring Results Review: All pre-operative results and documents have been reviewed as part of the pre-operative evaluation. Informed Consent: The patient's anesthetic plan and its attendant risks and benefits were discussed with the patient/family/POA. Questions were solicited and answers provided to the satisfaction of the patient/family/POA.
--- NOTE | 2025-02-19 09:36 | PM.HPGS ---
History of Present Illness History of Present Illness Consent: Risks, benefits, and alternatives have been discussed and questions answered. Patient agrees to proceed with procedure. Chief complaint: GERD Narrative: Yesenia Patton is a 69 year old female here for egd, h/o gerd Review of Systems Review of Systems: All systems reviewed & are unremarkable except as noted in HPI and below PMFSH Past Medical History Medical History GERD (gastroesophageal reflux disease) Anxiety Arthritis Uterine cancer age 33 Mild acid reflux Hernandez esophagus Hyperlipidemia Hypertension Surgical History Surgical History History of cholecystectomy 12/2022 S/P breast biopsy, right (09/09/16) right stereotactic breast needle core bx - fibroadenoma like change w/microcalcification, duct ectasia S/P total abdominal hysterectomy uterine cancer age 33 History of bladder suspension procedure (04/05/97) Family History Family History Mother No pertinent past medical history Father Emphysema lung Social History Social History Smoking status: Never smoker Alcohol intake: never Substance use: never Substance use type: does not use Lack of Transportation: No Lack of Food: Never True Current Housing: I Have Housing Concerned About Future Housing: No Difficulty Paying Gas/Electric Bills: No Difficulty Paying for Meds: No Currently Unemployed: No Education: High School Diploma/GED Difficulty w/ Childcare or Family Care: No Living arrangements: with family Additional living arrangements comments: Occupation/Education: retired Gender identity (if verbalized by the patient): Female Sexual Orientation (if Verbalized by the Patient): Straight or Heterosexual Spiritual care concerns: No Meds Home Medications and Allergies Home Medications ?Medication ?Instructions ?Recorded ?Confirmed ?Type esomeprazole magnesium 40 mg 40 mg PO DAILY 08/04/20 02/19/25 History capsule,delayed release (Nexium) lisinopril 20 1 tablet PO DAILY 08/04/20 02/19/25 History mg-hydrochlorothiazide 12.5 mg tablet pravastatin 20 mg tablet 20 mg PO DAILY 08/04/20 02/19/25 History cyanocobalamin (vitamin B-12) 1,000 mcg PO DAILY 12/31/22 02/19/25 History 1,000 mcg tablet hydrocodone 7.5 mg-acetaminophen 1 tablet PO TID PRN Pain 12/31/22 02/19/25 History 325 mg tablet lorazepam 0.5 mg tablet 0.5 mg PO BID PRN Anxiety 12/31/22 02/19/25 History magnesium 200 mg tablet 400 mg PO DAILY 12/31/22 02/19/25 History psyllium husk 0.4 gram capsule 0.4 g PO DAILY 12/31/22 02/19/25 History (Metamucil) docusate calcium 240 mg capsule 240 mg PO DAILY #30 caps 05/04/23 02/19/25 Rx estradiol 0.01% (0.1 mg/gram) 1 g vaginal 3XW 2 weeks #42.5 grams 05/06/23 02/19/25 Rx vaginal cream conjugated estrogens 0.625 mg/gram 0.625 mg vaginal DIRECTED #30 07/19/23 02/19/25 Rx vaginal cream (Premarin) grams Allergies Allergy/AdvReac Type Severity Reaction Status Date / Time No Known Allergies Allergy Verified 02/19/25 08:32 Vital Signs Vital Signs - 24 hr 02/19/25 08:33 Temperature 97 F L Pulse Rate 71 Respiratory Rate 18 Blood Pressure 133/63 Pulse Oximetry 100 Oxygen Delivery Room Air Exam Const: General: comfortable and no acute distress HENMT: Face/Nose/Sinus: Normal nares present Eyes: General: appearance normal, both eyes and all related structures Resp: Auscultation: clear to auscultation bilaterally Cardio: Rate: regular rate Rhythm: regular rhythm GI: Inspection: non-distended GI Palp: Yes Soft to palpation Skin: General skin exam: normal color Extrem: General: normal to inspection Psych: Mental Status: mental status grossly normal Assessment and Plan Assessment and plan (1) GERD (gastroesophageal reflux disease): Qualifiers: Esophagitis presence: esophagitis presence not specified Qualified Code(s): K21.9 - Gastro-esophageal reflux disease without esophagitis Code(s): K21.9 - Gastro-esophageal reflux disease without esophagitis Status: Acute Assessment and Plan: egd with bx
--- NOTE | 2025-02-19 09:53 | S_PTH ---
PATIENT: Yesenia Patton LOC: [facility] Agarwal#:[id number] AGE/SX: 69/F ROOM: RE02/19/[address]: Rod Hargrove MD : [id number] BED: DIS: 02/19/2025 SPEC #: [id number] RECD: 02/19/25 10:12 STATUS: EMERY REHailee #: [id number] CRISTAL: 02/19/25 09:[address]: Rod Hargrove DEPT: [facility] Surgical RECD BY: Abram Johnson ENTERED: 02/19/25 10:13 SP TYPE: Surgical OTHR DR: Harris PrestonMD Tissues: A - Gastric Biopsy B - Esophageal Biopsy Procedures: Hematoxylin and Eosin Stain Gross and Microscopic Level 4
[2025-02-19 09:58] VITALS: BP 136/71; PULSE 80; RESP 20; O2SAT 99
[2025-02-19 10:08] VITALS: BP 130/60; PULSE 65; RESP 20; O2SAT 99
[2025-02-19 10:18] VITALS: BP 117/62; PULSE 62; RESP 20; O2SAT 99
== END 2025-02-19 10:36 | disposition home or self-care (01) ==
PROVIDERS: PCP Internal Medicine; Referring Provider Internal Medicine; Visit Provider Internal Medicine Gastroenterology
PROC: 0DJ08ZZ Inspection of Upper Intestinal Tract, Via Natural or Artificial Opening Endoscopic (ICD-10-PCS; CPT 43249; principal; 2025-02-19 09:45)
DX: K21.9 Gastro-esophageal reflux disease without esophagitis (principal); K22.2 Esophageal obstruction; K44.9 Diaphragmatic hernia without obstruction or gangrene
CPT/HCPCS: 43249; 43239; 88305; C1726; J2003; J2704; J7120